=== PATIENT | male | born 2005 | race Caucasian/White ===

== ENCOUNTER 2025-05-09 18:32 | Emergency (ER) | payer OTHER, SELFPAY ==
[2025-05-09 19:10] VITALS: BP 121/56; PULSE 67; RESP 16; TEMP 36.6; O2SAT 98; BMI 22.6
--- NOTE | 2025-05-09 19:36 | ED.GENADULT ---
HPI - General Adult General Chief complaint: Skin/Abscess/Foreign Body Stated complaint: poison yisel Time Seen by Provider: 05/09/25 21:10 Source: patient Mode of arrival: ambulatory Limitations: no limitations History of Present Illness ED Provider: HPI narrative: Here with poison yisel bilateral forearms and left abdominal wall, works outside Related Data Previous Rx's ?Medication ?Instructions ?Recorded hydroxyzine HCl 10 mg tablet 10 mg PO TID PRN itching 3 days 05/09/25 #10 tabs prednisone 20 mg tablet 40 mg (2 x 20 mg) PO DAILY 4 days 05/09/25 #8 tabs Allergies Allergy/AdvReac Type Severity Reaction Status Date / Time No Known Allergies (No Known Allergy Verified 05/09/25 19:13 Allergies*) Review of Systems Constitutional: Constitutional: Reports as per [facility] Past Medical History Surgical History (Updated 11/09/20 @ 10:31 by ZULEIKA Heaton) No significant past surgical history Family History Family History (Updated 11/09/20 @ 10:31 by ZULEIKA Heaton) Mother No problems noted. 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 Please refer to detailed history, exam, evaluation, and management by primary provider. Not visualized at triage, reports right abdomen and inguinal region. JS Medical Decision Making Medical Decision Making [facility] Narrative: Patient was evaluated and we will be treated for symptoms related to contact dermatitis due to poison yisel exposure Differential Diagnosis Differential Diagnoses: The differential diagnosis associated with the presentation includes (Cellulitis, trauma, arterial insufficiency, venous insufficiency) Prescription Management I considered prescription management with: Pain Medication Discharge Plan Discharge Clinical Impression: Contact dermatitis due to poison yisel Patient Disposition: Home, Self-Care Instructions: Poison Yisel (ED) Additional Instructions: Continue with prednisone starting tomorrow, hydroxyzine 10 mg every 8 hours needed for itching, continue with calamine lotion, hydroxyzine can make you drowsy do not drive while taking this medication Prescriptions: New prednisone 20 mg tablet 40 mg PO DAILY 4 Days Qty: 8 0RF hydroxyzine HCl 10 mg tablet 10 mg PO TID PRN (Reason: itching) 3 Days Qty: 10 0RF Print Language: Omani
[2025-05-09 21:44] VITALS: BP 121/56; PULSE 67; RESP 16; TEMP 36.6; O2SAT 98
== END 2025-05-09 21:44 | disposition home or self-care (01) ==
PROVIDERS: Emergency Provider Emergency Medicine
DX: L23.7 Allergic contact dermatitis due to plants, except food (principal)
CPT/HCPCS: 99282; 99283

== ENCOUNTER 2025-06-08 18:53 | Emergency (ER) | payer OTHER, SELFPAY ==
[2025-06-08 19:08] VITALS: BP 111/65; PULSE 81; RESP 16; TEMP 36.6; O2SAT 98; BMI 22.4
--- NOTE | 2025-06-08 19:09 | ED.SKABFB ---
HPI - Skin/Abscess/Foreign Bdy General Chief complaint: Skin/Abscess/Foreign Body Stated complaint: Poison Yisel Time Seen by Provider: 06/08/25 19:15 Source: patient and RN notes reviewed Mode of arrival: ambulatory Limitations: no limitations History of Present Illness ED Provider: Sandra Peace PA-C HPI narrative: This is a 20-year-old male who presents emergency department with itchy rash on bilateral arms and legs for the last 3 days. 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 He states that he also had poison yisel rash several weeks ago, which was treated with prednisone and hydroxyzine. He states that his symptoms completely resolved up until 3 days ago. No fevers or chills. No difficulty breathing. No shortness of breath. No other complaints or concerns at this time. MD complaint: rash Onset (ago): day(s) Quality: pruritic Pain Consistency: constant Relieving factors: none Exacerbating factors: none Context: none Associated symptoms: denies other symptoms Treatments prior to arrival: none Related Data Previous Rx's ?Medication ?Instructions ?Recorded hydroxyzine HCl 10 mg tablet 10 mg PO TID PRN itching 3 days 05/09/25 #10 tabs prednisone 20 mg tablet 40 mg (2 x 20 mg) PO DAILY 4 days 05/09/25 #8 tabs hydroxyzine HCl 10 mg tablet 10 mg PO TID PRN itching 3 days 06/08/25 #10 tabs prednisone 20 mg tablet 40 mg (2 x 20 mg) PO DAILY 4 days 06/08/25 #8 tabs Allergies Allergy/AdvReac Type Severity Reaction Status Date / Time poison yisel extract Allergy Rash Verified 06/08/25 19:11 Review of Systems Review of Systems: Constitutional : No Fever, No Chills ENT/Mouth : No sore throat, No Rhinorrhea Eyes: No Eye Pain, No Swelling, No Redness Cardiovascular : No Chest Pain, No SOB Respiratory : No Cough, No Sputum Gastrointestinal : No Nausea, No Vomiting, No Diarrhea, No abdominal Pain Genitourinary : No Dysuria, No Hematuria Musculoskeletal : No joint pain, No Myalgias, No Joint Swelling Skin : No Skin Lesions Neuro : No Weakness, No Numbness, No Headache All other systems reviewed and are negative Yes all other systems are reviewed and are negative Constitutional: Constitutional: Reports as per HPI PMF[facility] Past Medical History Surgical History (Updated 11/09/20 @ 10:31 by ZULEIKA Heaton) No significant past surgical history Family History Family History (Updated 11/09/20 @ 10:31 by ZULEIKA Heaton) Mother No problems noted. Social History Social History (Updated 11/09/20 @ 10:32 by ZULEIKA Heaton) Household Members: Other Household Members Other:: DCF Custudy Advance Directives: No Advance Directives Information Provided: No Physical Exam Vital Signs: Vital Signs: Last Vital Signs Temp 97.8 F 06/08/25 19:27 Pulse 81 06/08/25 19:27 Resp 16 06/08/25 19:27 BP 111/65 06/08/25 19:27 Pulse Ox 98 06/08/25 19:27 O2 Del Method Room Air 06/08/25 19:27 BMI result Body Mass Index 22.4 Const: General: cooperative, comfortable and no acute distress Orientation/consciousness: patient oriented x3 Limitations: no limitations HEENT: Head: Yes normal to inspection, Yes normocephalic and Yes atraumatic Ears: hearing grossly normal bilaterally General nose exam: Normal external nose present Face and sinus: Yes normal facial exam Mouth: Normal oral and palatal mucosa present, oropharynx normal and moist mucous membranes Throat: Yes posterior oropharynx normal Eyes: General: appearance normal, both eyes and all related structures Eyelids: Yes eyelids normal Conjunctivae: conjunctivae normal Sclerae: sclerae normal Pupils: Equal, round and reactive pupils present EOM: EOMs intact bilaterally Neck: Neck: Yes normal visual inspection, Yes full ROM and Yes no lymphadenopathy Lymphatic: no lymphadenopathy noted Chest: Chest palpation & inspection: normal inspection of the chest Resp: Effort & Inspection: normal respiratory effort and able to speak in complete sentences Auscultation: clear to auscultation bilaterally, no crackles, no rales, no rhonchi and no wheezes Cardio: Rate: regular rate Rhythm: regular rhythm Heart sounds: S1 normal heart sound present and S2 normal heart sound present GI: Inspection: Yes normal to inspection Skin: Other: Bilateral upper extremities with diffuse maculopapular rash noted, excoriations noted, no surrounding erythema or warmth. No drainage. Sparing the face, torso. General skin exam: no rashes or lesions noted Trauma: no lacerations or abrasions Wounds: no wounds Neuro: General: patient oriented x3 and moves all extremities Cranial nerves: Yes Equal, round and reactive pupils present Extrem: General: Yes normal to inspection Right upper extremity: normal to inspection Left upper extremity: normal to inspection Right lower extremity: normal to inspection Left lower extremity: normal to inspection Medications Administered Discontinued Medications Generic Name Dose Route Start Last Admin Trade Name Girish PRN Reason Stop Dose Admin Hydroxyzine HCl 10 mg 06/08/25 19:13 06/08/25 19:25 Hydroxyzine Hcl 10 Mg Tablet PO 06/08/25 19:14 10 mg ONCE ONE Administration Prednisone 40 mg 06/08/25 19:13 06/08/25 19:24 Prednisone 20 Mg Tablet PO 06/08/25 19:14 40 mg ONCE ONE Administration Medical Decision Making Medical Decision Making MDM Narrative: This is a 20-year-old male who presents emergency department with concerns of poison yisel rash to arms and legs for the last 3 days. On arrival, vital signs within normal limits. He is speaking full sentences under no acute distress. Seen here recently for poison yisel rash. His rash is consistent with contact dermatitis secondary to poison yisel. Will treat with another course of prednisone, and hydroxyzine. He states that he is not driving home therefore medicated in the department. Given strict return precautions. Also discussed preventative ways of decreasing exposure to poison yisel. He understands and agrees with plan. Patient stable for discharge. Differential Diagnosis Differential Diagnoses: The differential diagnosis associated with the presentation includes Contact dermatitis, folliculitis, cellulitis, poison yisel, abscess Discharge Plan Discharge Clinical Impression: Contact dermatitis, Allergic dermatitis due to poison yisel Patient Disposition: Home, Self-Care Instructions: Poison Yisel (ED), Dermatitis (ED) Additional Instructions: You were seen in the emergency department after exposure to poison yisel. Please take prescribed prednisone as directed, you already received your 1st dose in the department. You also received a dose of hydroxyzine to help with itching. Resume medications prescription tomorrow, finish the entire course. Please be advised that poison yisel oils can be in contact with many of your toes that you use for work as well as she will laces, gloves etc. therefore make sure that you wash these in warm soapy water. Try to wear protection while your at work as being exposed to poison yisel you will likely get a rash. If any new or worsening symptoms occur including but not limited to severe chest pain, shortness of breath, difficulty breathing, please seek emergent care. Prescriptions: New prednisone 20 mg tablet 40 mg PO DAILY 4 Days Qty: 8 0RF hydroxyzine HCl 10 mg tablet 10 mg PO TID PRN (Reason: itching) 3 Days Qty: 10 0RF No Action prednisone 20 mg tablet 40 mg PO DAILY 4 Days Qty: 8 0RF hydroxyzine HCl 10 mg tablet 10 mg PO TID PRN (Reason: itching) 3 Days Qty: 10 0RF Interventions: ED Discharge Assessment Last Done: 06/08/25 19:27 Discharge Date/Time: 06/08/25 19:28 Print Language: Frisian
--- OUTSIDE RECORDS SUMMARY | 2025-06-08 19:20 | XMS_ITS ---
Author Name [facility] Organization Unknown Encounters Encounter Type Encounter Reason Primary Diagnosis Location Date Ambulatory LT FOOT PAIN LT FOOT PAIN [facility] 08/28/2022 Care Team Organization Name Specialty Phone Email Start Date End Da te [facility] provided No Primary Care 08/28/2022 05/11/2024 [facility] No provided Primary Care 08/28/2022 08/28/2022
[2025-06-08 19:27] VITALS: BP 111/65; PULSE 81; RESP 16; TEMP 36.6; O2SAT 98
== END 2025-06-08 19:28 | disposition home or self-care (01) ==
PROVIDERS: Emergency Provider Emergency Medicine
DX: L23.7 Allergic contact dermatitis due to plants, except food (principal); R21 Rash and other nonspecific skin eruption
CPT/HCPCS: 99282; 99283